=== PATIENT | female | born 1960 | race Two or more races ===

== ENCOUNTER 2024-12-22 14:42 | Inpatient (IN) | payer MEDICARE, BC ==
[~2024-12-22] VITALS: Ht 154.9 cm; Wt 45.9 kg
[2024-12-22 15:26] LABS: Chloride 105 mmol/L (98-107); Potassium 3.8 mmol/L (3.5-5.1); Sodium 143 mmol/L (136-145)
[2024-12-22 15:27] LABS: Anion Gap 10 (5-15); Calcium 9.1 mg/dL (8.7-10.4); Carbon Dioxide 28 mmol/L (20-31)
--- NOTE | 2024-12-22 15:28 | ED.PDOC ---
History of Present Illness HPI Comments 64-year-old female with a history of SLE, hypothyroidism, osteoporosis and scoliosis brought in by private car, referred by urgent care for evaluation of dizziness. Patient states she has been dizzy for about a week intermittently, described as feeling off balance. She denies any headache, vision changes or focal weakness. She states she purchased meclizine [id number], which she has been taking with mild improvement, however she still was having symptoms so decided to go to urgent Care today. EKG performed at urgent care was abnormal as compared to a prior EKG, showing T-wave inversions in the inferior and lateral leads, so patient was referred to the ER for further evaluation. Patient denies any chest pain or shortness a breath. Chief Complaint: Dizziness Time Seen by MD: 14:50 Reviewed Notes: Medications, Allergies Allergies: Coded Allergies: NO KNOWN ALLERGIES (Unverified , 12/22/24) Information Source: Patient Mode of Arrival: Ambulatory Severity: Moderate Timing: Days Duration: Since onset Prehospital treatment: None Past Medical History PAST MEDICAL HISTORY: Thyroid Past Medical History (Other): SLE, osteoporosis, scoliosis Surgical History (Other): Ovarian cystectomy NEWS CONTENT SPECIALIST History: Denies all NEWS CONTENT SPECIALIST Hx Family History Family History: Reviewed,noncontributory to illness Social History Smoker: Non-Smoker Alcohol: Denies ETOH Use Drugs: Denies Drug Use Lives In: Home Constitutional: denies: chills, diaphoresis, fatigue, fever, malaise, sweats, weakness, others EENTM: denies: blurred vision, double vision, ear bleeding, ear discharge, ear drainage, ear pain, ear ringing, eye pain, eye redness, hearing loss, mouth pain, mouth swelling, nasal discharge, nose bleeding, nose congestion, nose pain, photophobia, tearing, throat pain, throat swelling, voice changes, others Respiratory: denies: cough, hemoptysis, orthopnea, SOB at rest, shortness of breath, SOB with excertion, stridor, wheezing, others Cardiovascular: denies: chest pain, dizzy spells, diaphoresis, Dyspnea on exertion, edema, irregular heart beat, left arm pain, lightheadedness, palpitations, PND, syncope, others Gastrointestinal: denies: abdomen distended, abdominal pain, blood streaked bowels, constipated, diarrhea, dysphagia, difficulty swallowing, hematemesis, melena, nausea, poor appetite, poor fluid intake, rectal bleeding, rectal pain, vomiting, others Genitourinary: denies: abnormal vagina bleeding, burning, dyspareunia, dysuria, flank pain, frequency, hematuria, incontinence, pain, , vagina d ischarge, urgency, others Neurological: reports: dizziness; denies: fainting, headache, left sided numbness, left sided weakness, numbness, paresthesia, pre-existing deficit, right sided numbness, right sided weakness, seizure, speech problems, tingling, tremors, weakness, others Musculoskeletal: denies: back pain, gout, joint pain, joint swelling, muscle pain, muscle stiffness, neck pain, others Integumetry: denies: bruises, change in color, change in hair/nails, dryness, laceration, lesions, lumps, rash, wounds, others Allergic/Immunocompromised: denies: Difficulty Healing, Frequent Infections, Hives, Itching, others Hematologic/Lymphatic: denies: anemia, blood clots, easy bleeding, easy bruising, swollen glands, others Endocrine: denies: excessive hunger, excessive sweating, excessive thirst, excessive urination, flushing, intolerance to cold, intolerance to heat, unexplained weight gain, unexplained weight loss, others Psychiatric: denies: anxiety, bipolar disorder, depression, hopeless, panic disorder, schizophrenia, sleepless, suicidal, others Physical Exam General Appearance: No Apparent Distress HEENT: Other (Pupils and face symmetric. Moist mucous membranes.) Neck: Full Range of Motion, Normal Inspection Respiratory: Lungs Clear, No Accessory Muscle Use, No Respiratory Distress, Normal Breath Sounds Cardiovascular: No Edema, No JVD, Regular Rate/Rhythm Breast Exam: Deferred Gastrointestinal: Non Tender, Soft Genitalia: Deferred Pelvic: Deferred Rectal: Deferred Extremities: Normal inspection, Normal range of motion, Non-tender, No pedal edema Neurologic: Alert (Oriented x4), Normal Affect, Normal Mood, Other (Ambulatory. No gross focal deficit.) Cerebellar Function: NOT DONE Reflexes: NOT DONE Skin: Dry, Normal Color, Warm Lymphatic: NOT DONE Was a procedure done? Was a procedure done?: No EKG EKG : Comments Sinus rhythm, rate 67, normal intervals, normal axis, normal QRS, inferior and lateral T-wave inversion Differential Dx Considerations may include: Positional vertigo, CVA, TIA, orthostasis/hypovolemia, electrolyte imbalance, arrhythmia, HI, among others X-Ray, Labs, Meds, VS Vital Signs Date Time Temp Pulse Resp B/P (MAP) Pulse Ox O2 Delivery O2 Flow Rate FiO2 12/22/24 21:00 Room Air* 0 21 12/22/24 21:00 98.3 89 18 134/77 (96) 98 98.3 12/22/24 16:37 70 16 97 Room Air 12/22/24 16:37 97.4 70 16 147/75 (99) 70 97.4 12/22/24 14:55 67 12/22/24 14:45 98.6 69 16 137/69 98 98.6 Lab Test 12/22/24 21:40 12/22/24 16:34 12/22/24 15:45 12/22/24 15:00 Range/Units Troponin I High Sensitivity 207 *H 245 *H 233 *H </=34 ng/L Urine Color Light-yellow Yellow Urine Clarity Clear Clear Urine pH 5.5 5.0-9.0 Urine Specific [place] 1.010 1.001-1.035 Urine Protein Negative Negative Urine Ketones Negative Negative Urine Blood 1+ H Negative /uL Urine Nitrite Negative Negative Urine Bilirubin Negative Negative Urine Urobilinogen Normal Negative mg/dL Urine Leukocyte Esterase Trace Negative /uL Urine RBC 3 0 - 4 /hpf Urine Microscopic WBC 4 0-5 /HPF Urine Squamous Epithelial Cells None seen <5 /hpf Urine Bacteria None seen None Seen /hpf Urine Glucose Normal Normal mg/dL White Blood Count 7.2 4.4-10.8 10^3/uL Red Blood Count 4.77 4.0-5.20 10^6/uL Hemoglobin 15.0 12.2-16.2 g/dL Hematocrit 43.2 36.0-46.0 % Mean Corpuscular Volume 90.6 80.0-100.0 fL Mean Corpuscular Hemoglobin 31.5 28.0-32.0 pg Mean Corpuscular Hemoglobin Concent 34.8 32.0-36.0 g/dL Red Cell Distribution Width 12.9 11.8-14.3 % Platelet Count 236 140-450 10^3/uL Mean Platelet Volume 8.1 6.9-10.8 fL Neutrophils (%) (Auto) 45.1 37.0-80.0 % Lymphocytes (%) (Auto) 47.0 10.0-50.0 % Monocytes (%) (Auto) 5.8 0.0-12.0 % Eosinophils (%) (Auto) 1.6 0.0-7.0 % Basophils (%) (Auto) 0.5 0.0-2.0 % Neutrophils # (Auto) 3.2 1.6-8.6 10 ^3/uL Lymphocytes # (Auto) 3.4 0.4-5.4 10 ^3/uL Monocytes # (Auto) 0.4 0-1.3 10 ^3/uL Eosinophils # (Auto) 0.1 0-0.8 10 ^3/uL Basophils # (Auto) 0 0-0.2 10 ^3/uL Nucleated Red Blood Cells 0.2 % Sodium Level 143 136-145 mmol/L Potassium Level 3.8 3.5-5.1 mmol/L Chloride Level 105 98-107 mmol/L Carbon Dioxide Level 28 20-31 mmol/L Anion Gap 10 5-15 Blood Urea Nitrogen 11 9-23 mg/dL Creatinine 0.59 0.550-1.02 mg/dL Glomerular Filtration Rate Calc 100 >90 mL/min BUN/Creatinine Ratio 18.6 10.0-20.0 Serum Glucose 77 74-106 mg/dL Calcium Level 9.1 8.7-10.4 mg/dL B-Type Natriuretic Peptide 39.25 0-100 pg/mL Current Medications Medications (Trade) Dose Ordered Sig/Sweta Route Start Time Stop Time Status Last Admin Aspirin 325 mg ONCE ONCE PO 12/22/24 20:45 12/22/24 20:51 DC 12/22/24 21:04 PROCEDURE(s): HWOCT - HEAD WITHOUT CONTRAST REASON: dizzy ORDER NUMBER(s): [id number], ACCESSION NUMBER(s): [id number] CLINICAL HISTORY: dizzy TECHNIQUE: Helical scanning was performed of the head from the skull base to the vertex. Multiplanar reconstructions were performed. This exam was performed according to our departmental dose optimization program. Up-to-date CT equipment and radiation dose reduction techniques are utilized as appropriate. CTDI 50.9 DLP 899.2 but they're not COMPARISON: None FINDINGS: There is no evidence for acute intracranial hemorrhage, acute ischemic changes, mass, mass effect, or extra-axial fluid collection. There is no hydrocephalus or midline shift. There is no effacement of the cerebral sulci and basal subarachnoid cisterns. The sherman-white matter differentiation is well maintained. The imaged paranasal sinuses are clear. IMPRESSION: NO ACUTE INTRACRANIAL ABNORMALITY SEEN. X-Ray, Labs, Meds, VS Comment 64-year-old female with a history of SLE, hypothyroidism, osteoporosis and scoliosis brought in by private car, referred by urgent care for evaluation of dizziness and abnormal EKG findings. Initial vitals unremarkable Exam unremarkable Rhythm strip independently interpreted by me: Sinus rhythm, rate 67, no ectopy. CT head unremarkable Chest x-ray result pending CBC normal, basic metabolic panel and BNP normal. Serial troponins 233 and 245 Patient treated with the following in the ED: Aspirin 325 mg p.o. On re-evaluation, exam is unchanged. Vitals were stable. Patient denies chest pain. Plan is to admit the patient for ongoing serial troponins and Cardiology/neurology evaluation Case discussed with JAKE Meeks, who will admit the patient. Time of 1ST Reevaluation: 15:31 Reevaluation 1ST: Unchanged Patient Education/Counseling: Diagnosis, Treatment Family Education/Counseling: No Family Present SEPSIS Sepsis Screen Date sepsis recognized/suspect: Dec 22, 2024 Time Sepsis recognized/suspect: 1445 Recent Procedure: No On Antibiotic Therapy: No Respiratory Rate >20: No Heart Rate >90: No Temp<36 C (96.8 F) or >38.3 C: No SBP <90 or MAP <65 mmHG: No New Acute Mental Status Change: No Is the patient on CPAP, BIPAP,: No Physician Orders Head Without Contrast (12/22/24 15:09) Chest Xray 1 View (12/22/24 20:34) Vital Signs Date Time Temp Pulse Resp B/P (MAP) Pulse Ox O2 Delivery O2 Flow Rate FiO2 12/22/24 21:00 Room Air* 0 21 12/22/24 21:00 98.3 89 18 134/77 (96) 98 98.3 12/22/24 16:37 70 16 97 Room Air 12/22/24 16:37 97.4 70 16 147/75 (99) 70 97.4 12/22/24 14:55 67 12/22/24 14:45 98.6 69 16 137/69 98 98.6 Laboratory Tests Test 12/22/24 15:00 White Blood Count 7.2 10^3/uL (4.4-10.8) Medications Medications Dose Ordered Sig/Sweta Route Start Time Stop Time Status Last Admin Dose Admin Aspirin 325 mg ONCE ONCE PO 12/22/24 20:45 12/22/24 20:51 DC 12/22/24 21:04 Departure 1 Departure Time of Disposition: 18:00 Impression: Primary Impression: Dizziness Additional Impression: Elevated troponin Disposition: ADMITTED INPATIENT Admit to: Tele Condition: Guarded Critical Care Note Critical Care Time?: No Stability Stability form required: No Heart Score Heart Score: Heart Score Response (Comments) Value History N/A 0 EKG N/A 0 Age N/A 0 Risk Factors N/A 0 Troponin N/A 0 Total 0 I personally scribed for TORI COSBY MD ([email or web address]) on 12/22/24 at 15:33. Electronically submitted by Rayray Vuong ([email or web address]). TORI COSBY MD Dec 22, 2024 15:28
[2024-12-22 15:32] LABS: BUN/Creatinine Ratio 18.6 (10.0-20.0); Blood Urea Nitrogen 11 mg/dL (9-23); Glucose 77 mg/dL (74-106)
[2024-12-22 15:54] LABS: Hematocrit 43.2 % (36.0-46.0); Hemoglobin 15.0 g/dL (12.2-16.2); Mean Corpuscular Hemoglobin 31.5 pg (28.0-32.0); Mean Corpuscular Volume 90.6 fL (80.0-100.0); Nucleated Red Blood Cells % 0.2 %
--- NOTE | 2024-12-22 16:08 | DVH ---
CLINICAL HISTORY: dizzy TECHNIQUE: Helical scanning was performed of the head from the skull base to the vertex. Multiplanar reconstructions were performed. This exam was performed according to our departmental dose optimizat ion program. Up-to-date CT equipment and radiation dose reduction techniques are utilized as appropri ate. CTDI 50.9 DLP 899.2 but they're not COMPARISON: None FINDINGS: There is no evidence for acute intracranial hemorrhage, acute ischemic changes, mass, mass effect, or extra-axial fluid collection. There is no hydrocephalus or midline shift. There is no effacement of the cerebral sulci and basal subarachnoid cisterns. The sherman-white matter differentiation is well carleen ntained. The imaged paranasal sinuses are clear. IMPRESSION: NO ACUTE INTRACRANIAL ABNORMALITY SEEN.
[2024-12-22 16:32] LABS: Urine Protein, UAD Negative (Negative)
--- NOTE | 2024-12-22 18:46 | ECG ---
[facility] Test Date: 2024-12-22 Test Time: 14:52:02 Pat Name: CARLOS GOMEZ Department: ED Room: Gender: F Cigar Head Pegger: RAE : 1960 Requested By: TORI RAY Order Number: [id number] Reading MD: Measurements Intervals [place] Rate: 67 P: 36 VT: 140 QRS: 70 QRSD: 80 T: -53 QT: 443 QTc: 468 Interpretive Statements Sinus rhythm Consider left ventricular hypertrophy Nonspecific T abnormalities, diffuse leads Please click the below link to view image of tracing.
--- NOTE | 2024-12-22 21:08 | DVH ---
CHEST RADIOGRAPH Indication: Dizziness, abnormal EKG, elevated troponin Technique: Single frontal view of the chest was obtained Comparison: None FINDINGS: Lines and Tubes: None Lungs: No focal consolidation. Pleura: No effusion. No pneumothorax. Cardiomediastinal contours: Unremarkable Bones: No acute osseous abnormality. IMPRESSION: 1. No acute cardiopulmonary disease.
[2024-12-22] MEDS ORDERED: ACETAMINOPHEN 325 MG TAB PO PRN (22:45)
[2024-12-22] MEDS ORDERED: ONDANSETRON HCL 4 MG/2 ML VIAL IV PRN (22:45)
[2024-12-22] MEDS ORDERED: MORPHINE SULFATE INJ 2 MG/ml SYRG IV PRN ×2 (22:45)
[2024-12-22] MEDS ORDERED: MECLIZINE HCL 25 MG TAB PO PRN (22:45)
[2024-12-22] MEDS ORDERED: NITROGLYCERIN 0.4 MG SL TAB SL PRN (22:45)
[2024-12-22] MEDS ORDERED: DOCUSATE SOD 100 MG CAP PO PRN (22:45)
[2024-12-22] MEDS ORDERED: HYDROcodone-ACET 5/325MG TAB PO PRN (22:45)
[2024-12-23] VITALS (13 sets, daily range): BP systolic 109–140; BP diastolic 54–75; PULSE 60–73; RESP 12–20; TEMP 97.5–98.6; O2SAT 96–100
--- NOTE | 2024-12-23 01:55 | DVHHP2 ---
BABATUNDE VALENTIN DIRECTOR OF NATIONAL SALES 12/23/24 0155: History of Present Illness Reason for Visit: Dizziness History of Present Illness 64-year-old female with past medical history of hypothyroidism, SLE presents with complaints of dizziness x1 week. Patient states she went to urgent care and was sent to the emergency department for an abnormal EKG. EKG completed at urgent Care had abnormal T-wave compared to the previous EKG. Patient endorses she has had intermittent chest tightness throughout the previous week. During the emergency department evaluation CBC is unremarkable. BMP unremarkable. Troponin levels elevated to 233/245/207. At this time patient states dizziness has improved mildly. Denies fevers, chills, shortness of breath, palpitations, nausea, vomiting, leg swelling. Rheumatologic: Other (SLE) Endocrine: Hypothyroidism Smoke: No ALCOHOL: none Drugs: None Lives: with Family Review of Systems Constitutional: No: Fever, Chills, Sweats, Weakness, Malaise, Other Eyes: No: Pain, Vision change, Conjunctivae inflammation, Eyelid inflammation, Other, Redness ENT: No: Ear pain, Ear discharge, Nose pain, Nose discharge, Nose congestion, Mouth pain, Mouth swelling, Throat pain, Throat swelling, Other Respiratory: No: Cough, Dry, Shortness of breath, SOB with excertion, Wheezing, Hemoptysis, Pleuritic Pain, Sputum, Wheezing, Other Cardiovascular: Chest Pain, Lt Headedness; No: Palpitations, Orthopnea, Paroxysmal Noc. Dyspnea, Edema, Other Gastrointestinal: No: Nausea, Vomiting, Abdominal Pain, Diarrhea, Constipation, Melena, Hematochezia, Other Genitourinary: No Dysuria, No Frequency, No Incontinence, No Hematuria, No Retention, No Other Musculoskeletal: No: other, neck pain, shoulder pain, arm pain, back pain, hand pain, leg pain, foot pain Skin: No: Rash, Lesions, Jaundice, Bruising, Other Neurological: No: Weakness, Numbness, Incoordination, Change in speech, Confusion, Seizures, Other Allergies: Coded Allergies: NO KNOWN ALLERGIES (Unverified , 12/22/24) Medications Current Medications Medications Dose Ordered Sig/Sweta Route Start Time Stop Time Status Last Admin Dose Admin Docusate Sodium 100 mg BIDPRN PRN PO 12/22/24 22:45 Acetaminophen 650 mg Q6HP PRN PO 12/22/24 22:45 Acetaminophen/ Hydrocodone Bitart 1 tab Q4HP PRN PO 12/22/24 22:45 Ondansetron HCl 4 mg Q4HP PRN IV 12/22/24 22:45 Morphine Sulfate 2 mg Q4HPRN PRN IV 12/22/24 22:45 Enoxaparin Sodium 40 mg DAILY SC 12/23/24 10:00 Nitroglycerin 0.4 mg Q5MINP PRN SL 12/22/24 22:45 Morphine Sulfate 2 mg Q30M PRN IV 12/22/24 22:45 Aspirin 81 mg DAILY PO 12/23/24 10:00 Levothyroxine Sodium 75 mcg DAILY PO 12/23/24 10:00 Meclizine HCl 25 mg Q8HPRN PRN PO 12/22/24 22:45 Exam Vital Signs Vital Signs Date Time Temp Pulse Resp B/P (MAP) Pulse Ox O2 Delivery O2 Flow Rate FiO2 12/22/24 23:40 60 16 163/62 (95) 99 12/22/24 21:00 Room Air* 0 21 12/22/24 21:00 98.3 98.3 General Appearance: Alert, Oriented X3, Cooperative, No acute distress HEENT: Atraumatic, PERRLA, EOMI Respiratory: Clear to auscultation, Normal air movement Cardiovascular: Regular rate, Normal S1, Normal S2 Abdominal: Normal bowel sounds, Soft, No tenderness Extremities: No clubbing, No cyanosis, No edema Skin: No rashes, No breakdown Neuro: Normal gait, Normal speech, Strength at 5/5 X4 ext Psych/Mental Status: Mental status NL, Mood NL Labs/Xrays Labs Test 12/22/24 21:40 12/22/24 15:45 12/22/24 15:00 Range/Units Troponin I High Sensitivity 207 *H </=34 ng/L Urine Color Light-yellow Yellow Urine Clarity Clear Clear Urine pH 5.5 5.0-9.0 Urine Specific [place] 1.010 1.001-1.035 Urine Protein Negative Negative Urine Ketones Negative Negative Urine Blood 1+ H Negative /uL Urine Nitrite Negative Negative Urine Bilirubin Negative Negative Urine Urobilinogen Normal Negative mg/dL Urine Leukocyte Esterase Trace Negative /uL Urine RBC 3 0 - 4 /hpf Urine Microscopic WBC 4 0-5 /HPF Urine Squamous Epithelial Cells None seen <5 /hpf Urine Bacteria None seen None Seen /hpf Urine Glucose Normal Normal mg/dL White Blood Count 7.2 4.4-10.8 10^3/uL Red Blood Count 4.77 4.0-5.20 10^6/uL Hemoglobin 15.0 12.2-16.2 g/dL Hematocrit 43.2 36.0-46.0 % Mean Corpuscular Volume 90.6 80.0-100.0 fL Mean Corpuscular Hemoglobin 31.5 28.0-32.0 pg Mean Corpuscular Hemoglobin Concent 34.8 32.0-36.0 g/dL Red Cell Distribution Width 12.9 11.8-14.3 % Platelet Count 236 140-450 10^3/uL Mean Platelet Volume 8.1 6.9-10.8 fL Neutrophils (%) (Auto) 45.1 37.0-80.0 % Lymphocytes (%) (Auto) 47.0 10.0-50.0 % Monocytes (%) (Auto) 5.8 0.0-12.0 % Eosinophils (%) (Auto) 1.6 0.0-7.0 % Basophils (%) (Auto) 0.5 0.0-2.0 % Neutrophils # (Auto) 3.2 1.6-8.6 10 ^3/uL Lymphocytes # (Auto) 3.4 0.4-5.4 10 ^3/uL Monocytes # (Auto) 0.4 0-1.3 10 ^3/uL Eosinophils # (Auto) 0.1 0-0.8 10 ^3/uL Basophils # (Auto) 0 0-0.2 10 ^3/uL Nucleated Red Blood Cells 0.2 % Sodium Level 143 136-145 mmol/L Potassium Level 3.8 3.5-5.1 mmol/L Chloride Level 105 98-107 mmol/L Carbon Dioxide Level 28 20-31 mmol/L Anion Gap 10 5-15 Blood Urea Nitrogen 11 9-23 mg/dL Creatinine 0.59 0.550-1.02 mg/dL Glomerular Filtration Rate Calc 100 >90 mL/min BUN/Creatinine Ratio 18.6 10.0-20.0 Serum Glucose 77 74-106 mg/dL Calcium Level 9.1 8.7-10.4 mg/dL B-Type Natriuretic Peptide 39.25 0-100 pg/mL SEPSIS Sepsis Screen Date sepsis recognized/suspect: Dec 22, 2024 Time Sepsis recognized/suspect: 1445 Recent Procedure: No On Antibiotic Therapy: No Respiratory Rate >20: No Heart Rate >90: No Temp<36 C (96.8 F) or >38.3 C: No SBP <90 or MAP <65 mmHG: No New Acute Mental Status Change: No Is the patient on CPAP, BIPAP,: No Physician Orders Chest Xray 1 View (12/22/24 20:34) Admit (12/22/24 22:40) Code Status (12/22/24:40) Vital Signs .PER UNIT PROTOCOL (12/22/24 22:40) Review Orders With Adm.Md (12/22/24:40) Encourage Activity As Tolerate (12/22/24:40) Up Ad Kori (12/22/24:40) Consistent Carb(Ccho)Diabetes (12/23/24 Breakfast) Oxygen By Face Mask (12/22/24:40) Docusate Sodium Capsule (Colace Capsule) (12/22/24 22:45) Acetaminophen Tablet (Tylenol Tablet) (12/22/24 22:45) Notify Md Of Changes From Base (12/22/24 22:40) Advance Directive (12/22/24:40) Echo 2d Mode Cardiac Dop (12/22/24 22:40) Basic Metabolic Panel (12/23/24 05:00) Basic Metabolic Panel (12/24/24 05:00) Basic Metabolic Panel (12/25/24 05:00) Complete Blood Count (12/23/24 05:00) Complete Blood Count (12/24/24 05:00) Complete Blood Count (12/25/24 05:00) Patient Condition (12/22/24 22:40) Allergies (12/22/24 22:40) Hydrocodone-Acet 5/325mg Tab ([place] 5/32 (12/22/24 22:45) Ondansetron Hcl (Zofran) (12/22/24 22:45) Morphine Sulfate Injection (12/22/24 22:45) Enoxaparin Sodium (Lovenox) (12/23/24 10:00) Sequential Compression Device (12/22/24 ) Nitroglycerin Sublingual (Ntrostat Subli (12/22/24 22:45) Morphine Sulfate Injection (12/22/24 22:45) Stat Ekg For Chest Pain (12/22/24 22:40) Notify Md Of Changes From Base (12/22/24 22:40) Program Strategist For 24 Hours (12/22/24 22:40) Emergency Dysrhythmia Protocol (12/22/24 22:40) Rhythm Strips Once Every Shift (12/22/24 22:40) Oxygen By Nasal Cannula (12/22/24 22:40) Troponin-I Hs (12/23/24 04:00) Troponin-I Hs (12/23/24 12:00) * Cardiology Consult (12/22/24 22:40) Orthostatic Vital Signs (12/22/24 22:40) Orthostatic Vital Signs (12/23/24 22:40) Orthostatic Vital Signs (12/24/24 22:40) Orthostatic Vital Signs (12/25/24 22:40) Aspirin Tablet (12/23/24 10:00) Levothyroxine Tablet (Synthroid Tablet) (12/23/24 10:00) Sodium Chloride 0.9% (12/22/24 22:45) Meclizine Tablet (Antivert Tablet) (12/22/24 22:45) Communication Order (12/22/24 22:54) Vital Signs Date Time Temp Pulse Resp B/P (MAP) Pulse Ox O2 Delivery O2 Flow Rate FiO2 12/22/24 23:40 60 16 163/62 (95) 99 12/22/24 21:00 Room Air* 0 21 12/22/24 21:00 98.3 89 18 134/77 (96) 98 98.3 Laboratory Tests Test 12/22/24 15:00 White Blood Count 7.2 10^3/uL (4.4-10.8) Medications Medications Dose Ordered Sig/Sweta Route Start Time Stop Time Status Last Admin Dose Admin Aspirin 325 mg ONCE ONCE PO 12/22/24 20:45 12/22/24 20:51 DC 12/22/24 21:04 325 MG Assessment/Plan Assessment/Plan Dizziness Elevated troponin Plan Admit telemetry MRI brain. Cardiology consult. Echocardiogram. ASA. Orthostatic vital signs. IVF. As needed meclizine Physical therapy evaluation GI ppx Pepcid / DVT ppx lovenox Plan discussed with: Patient My Orders Orders - BABATUNDE VALENTIN NP Procedure Category Date Status Time Admit ADMIT 12/22/24 Transmitted 22:40 Code Status CODE 12/22/24 Transmitted 22:40 Vital Signs JENAE 12/22/24 In Process 22:40 Review Orders With JENAE 12/22/24 In Process Adm. 22:40 Encourage Activity As JENAE 12/22/24 In Process Tolerate 22:40 Up Ad Kori JENAE 12/22/24 In Process 22:40 Consistent DIET 12/23/24 Transmitted Carb(Ccho)Diabetes Breakfast Oxygen By Face Mask RT 12/22/24 Transmitted 22:40 Docusate Sodium PHA 12/22/24 In Process Capsule (Colace 22:45 Acetaminophen Tablet PHA 12/22/24 In Process (Tylenol Tablet) 22:45 Notify Of Changes JENAE 12/22/24 In Process From Base 22:40 Advance Directive JENAE 12/22/24 In Process 22:40 Echo 2d Mode Cardiac US 12/22/24 Logged DOP 22:40 Basic Metabolic Panel LAB 12/23/24 Logged 05:00 Basic Metabolic Panel LAB 12/24/24 Verified 05:00 Basic Metabolic Panel LAB 12/25/24 Verified 05:00 Complete Blood Count LAB 12/23/24 Logged 05:00 Complete Blood Count LAB 12/24/24 Verified 05:00 Complete Blood Count LAB 12/25/24 Verified 05:00 Patient Condition ORDERS 12/22/24 Transmitted 22:40 Allergies JENAE 12/22/24 In Process 22:40 Hydrocodone-Acet PHA 12/22/24 In Process 5/325mg Tab ([place] 22:45 Ondansetron Hcl PHA 12/22/24 In Process (Zofran) 22:45 Morphine Sulfate PHA 12/22/24 In Process Injection 22:45 Enoxaparin Sodium PHA 12/23/24 In Process (Lovenox) 10:00 Sequential JENAE 12/22/24 In Process Compression Device Nitroglycerin PHA 12/22/24 In Process Sublingual (Ntrostat 22:45 Morphine Sulfate PHA 12/22/24 In Process Injection 22:45 Stat Ekg For Chest JENAE 12/22/24 In Process Pain 22:40 Notify Of Changes JENAE 12/22/24 In Process From Base 22:40 Program Strategist For JENAE 12/22/24 In Process 24 Hours 22:40 Emergency Dysrhythmia JENAE 12/22/24 In Process Protocol 22:40 Rhythm Strips Once JENAE 12/22/24 In Process Every Shift 22:40 Oxygen By Nasal RT 12/22/24 Transmitted Cannula 22:40 Troponin-I Hs LAB 12/23/24 Logged 04:00 Troponin-I Hs LAB 12/23/24 Logged 12:00 * Cardiology Consult CONS 12/22/24 Transmitted 22:40 Orthostatic Vital ORDERS 12/22/24 Transmitted Signs 22:40 Orthostatic Vital ORDERS 12/23/24 Transmitted Signs 22:40 Orthostatic Vital ORDERS 12/24/24 Transmitted Signs 22:40 Orthostatic Vital ORDERS 12/25/24 Transmitted Signs 22:40 Aspirin Tablet PHA 12/23/24 In Process 10:00 Levothyroxine Tablet PHA 12/23/24 In Process (Synthroid Tablet) 10:00 Sodium Chloride 0.9% PHA 12/22/24 In Process 22:45 Meclizine Tablet PHA 12/22/24 In Process (Antivert Tablet) 22:45 Communication Order ORDERS 12/22/24 Transmitted 22:54 Date of Service: Dec 23, 2024 Billing Provider: DAKOTA TELLO MD Common Visit Codes: NOT BILLABLE DAKOTA TELLO MD 12/23/24 1548: Review of Systems Allergies: Coded Allergies: NO KNOWN ALLERGIES (Unverified , 12/22/24) Additional Comments Additional Comments Additional Comments Patient's chart is reviewed and discussed with the nurse practitioner. Patient is seen and evaluated and admitted by nurse practitioner earlier today. I agree with his evaluation, documentation, assessment and care plan as outlined. BABATUNDE VALENTIN NP Dec 23, 2024 01:55 DAKOTA TELLO MD Dec 23, 2024 15:48
[2024-12-23 04:58] LABS: Hematocrit 42.7 % (36.0-46.0); Hemoglobin 15.2 g/dL (12.2-16.2); Mean Corpuscular Hemoglobin 31.9 pg (28.0-32.0); Mean Corpuscular Volume 89.9 fL (80.0-100.0); Nucleated Red Blood Cells % 0.0 %
[2024-12-23] MEDS: SODIUM CHLORIDE 0.9% 500 ML IV ONE (05:01)
[2024-12-23 05:05] LABS: Chloride 107 mmol/L (98-107); Potassium 3.9 mmol/L (3.5-5.1); Sodium 142 mmol/L (136-145)
[2024-12-23 05:06] LABS: Anion Gap 7 (5-15); Calcium 8.8 mg/dL (8.7-10.4); Carbon Dioxide 28 mmol/L (20-31)
[2024-12-23 05:11] LABS: BUN/Creatinine Ratio 16.1 (10.0-20.0); Blood Urea Nitrogen 9 mg/dL (9-23); Glucose 79 mg/dL (74-106)
[2024-12-23] MEDS ORDERED: LEVO75TA6 PO (06:20)
[2024-12-23] MEDS ORDERED: INDO50CA82 PO (06:20)
[2024-12-23] MEDS ORDERED: HYDR200T36 PO (06:20)
[2024-12-23] MEDS ORDERED: ALEN70TA74 PO (06:20)
--- NOTE | 2024-12-23 08:57 | DVH ---
CLINICAL HISTORY: dizziness TECHNIQUE: Routine multiplanar imaging of the brain was performed without gadolinium contrast. COMPARISON: CT HEAD WITHOUT CONTRAST on DOS: 12/22/24 FINDINGS: There is no abnormal restricted diffusion to suggest acute infarction. There are no significant chronic small vessel ischemic foci. There is no evidence for acute ischemic changes, mass, mass effect, or extra-axial fluid collection. There is no hydrocephalus or midline shift. The cerebral sulci and subarachnoid cisterns are not effa collin. The imaged paranasal sinuses are clear. The globes are intact. The midline structures, including the corpus callosum, are unremarkable. The intracranial flow voids are maintained. IMPRESSION: No acute intracranial abnormality seen. No evidence for acute infarct. No significant white matter di sease.
[2024-12-23 09:38] LABS: Magnesium 2.4 mg/dL (1.6-2.6); Triglycerides 131.0 mg/dL (< 150)
[2024-12-23 09:40] LABS: Cholesterol 179.0 mg/dL (< 200)
[2024-12-23 09:47] LABS: HDL Cholesterol 61.0 mg/dL (40-59)
[2024-12-23] MEDS: ENOXAPARIN SOD 40 MG/0.4 ML SYRINGE SC SCH (09:57)
[2024-12-23] MEDS: LEVOTHYROXINE SODIUM 25 MCG TAB PO SCH (10:04)
--- NOTE | 2024-12-23 10:05 | DVHINCON2 ---
Date Seen: Dec 23, 2024 Referring Physician JAKE Meeks Reason for Consultation Elevated troponin History of Present Illness This is a 64-year-old female patient who presents to the emergency room with chief complaint of dizziness. The patient reports that she has been experiencing dizziness for approximately one week. She also mentions two episodes of chest pain. She describes the chest pain as unprovoked, inter mittent, tight in nature, substernal and nonradiating. She denied any alleviating or aggravating factors stating that these episodes were very brief. Initial twelve lead electrocardiogram reveals normal sinus rhythm with nonspecific T-wave inversion in diffuse leads. Initial troponin level of 233ng/L with flat trend thereafter. Significant past medical history includes thyroid disease, systemic lupus erythematosus (SLE), osteoarthritis, osteoporosis, scoliosis, and previous tobacco use. The patient reports a stress test approximately two years ago with negative results. She has not followed up with a rivet machine operator in the outpatient setting since that time. She does report pertinent family history of her father and brother having myocardial infarctions and both requiring stent placement. Past Medical History Past medical history reviewed. No other significant than mentioned above. Past Surgical History Ovarian cyst removal Family History: Patient reports no known family medical history. Family History Family history reviewed. Social History Patient has a 17 pack-year history, quit smoking approximately 30 years ago Patient admits to drinking four alcoholic drinks per week Denies any illicit drug use Allergies: Coded Allergies: NO KNOWN ALLERGIES (Unverified , 12/22/24) Home Meds Reported Medications Indomethacin (Indomethacin) 50 Mg Cap, 1 CAP PO TID 12/23/24 Levothyroxine Sodium (Levothyroxine Sodium) 75 Mcg Tab, 1 TAB PO DAILY 12/23/24 Hydroxychloroquine Sulfate (Hydroxychloroquine Sulfat) 200 Mg Tab, 1 TAB PO DAILY 12/23/24 Alendronate Sodium (Alendronate Sodium) 70 Mg Tab, 1 TAB PO QWEEKLY 12/23/24 Home Meds Home medications reviewed. Current Medications Current Medications Medications (Trade) Dose Ordered Sig/Sweta Route PRN Reason Start Time Stop Time Status Last Admin Docusate Sodium (Colace Capsule) 100 mg BIDPRN PRN PO FOR CONSTIPATION 12/22/24 22:45 Acetaminophen (Tylenol Tablet) 650 mg Q6HP PRN PO PAIN SCALE 1-3 OR TEMP>100.4 12/22/24 22:45 Acetaminophen/ Hydrocodone Bitart ([place] 5/325MG Tab) 1 tab Q4HP PRN PO MODERATE PAIN (4-6 PAIN SCALE) 12/22/24 22:45 Ondansetron HCl (Zofran) 4 mg Q4HP PRN IV NAUSEA / VOMITING 12/22/24 22:45 Morphine Sulfate 2 mg Q4HPRN PRN IV SEVERE PAIN (7-10 PAIN SCALE) 12/22/24 22:45 Enoxaparin Sodium (Lovenox) 40 mg DAILY SC 12/23/24 10:00 Nitroglycerin (Ntrostat Sublingual) 0.4 mg Q5MINP PRN SL FOR CHEST PAIN 12/22/24 22:45 Morphine Sulfate 2 mg Q30M PRN IV FOR CHEST PAIN 12/22/24 22:45 Aspirin 81 mg DAILY PO 12/23/24 10:00 Levothyroxine Sodium (Synthroid Tablet) 75 mcg DAILY PO 12/23/24 10:00 Meclizine HCl (Antivert Tablet) 25 mg Q8HPRN PRN PO dizziness 12/22/24 22:45 Review of Systems Constitutional: No symptom reported Ears, Nose, & Throat: No symptom reported Eyes: No symptom reported Neurological: Dizziness Pulmonary/Respiratory: No symptoms reported Cardiovascular: Chest pain Gastrointestinal: No symptom reported Genitourinary: No symptom reported Musculoskeletal: No symptom reported Skin: No symptom reported Psychiatric: No symptom reported Endocrine: No symptom reported Hematologic/Lymphatic: No symptom reported Vital Signs Vital Signs Date Time Temp Pulse Resp B/P (MAP) Pulse Ox O2 Delivery O2 Flow Rate FiO2 12/23/24 09:00 98.5 61 18 137/54 (81) 100 98.5 12/23/24 05:06 Room Air* 0 21 Physical Exam General Appearance: Cooperative. Well-developed. Well-nourished. No acute distress. Pulmonary/Respiratory: Clear, bilateral breaths sounds. Cardiovascular/Chest: Regular rate and rhythm. Peripheral Pulses: 2+ Radial (R). 2+ Radial (L). 2+ Pedal (R). 2+ Pedal (L) Abdominal Exam: Normal bowel sounds. Ankle Exam: Negative ankle edema Lower extremities: Negative lower extremity edema Neuro/Mental Status: A/OX4, coherent. Thoughts/Psych: Normal thought pattern. Appropriate mood and affect. Good judgment and insight. Appearance: No acute distress. Skin Exam: Normal inspection. Normal color. Warm and dry. Labs/Diagnostic Data Labs Test 12/23/24 04:14 12/22/24 15:45 12/22/24 15:00 Range/Units White Blood Count 7.3 4.4-10.8 10^3/uL Red Blood Count 4.75 4.0-5.20 10^6/uL Hemoglobin 15.2 12.2-16.2 g/dL Hematocrit 42.7 36.0-46.0 % Mean Corpuscular Volume 89.9 80.0-100.0 fL Mean Corpuscular Hemoglobin 31.9 28.0-32.0 pg Mean Corpuscular Hemoglobin Concent 35.5 32.0-36.0 g/dL Red Cell Distribution Width 12.8 11.8-14.3 % Platelet Count 251 140-450 10^3/uL Mean Platelet Volume 7.8 6.9-10.8 fL Neutrophils (%) (Auto) 47.6 37.0-80.0 % Lymphocytes (%) (Auto) 42.2 10.0-50.0 % Monocytes (%) (Auto) 7.3 0.0-12.0 % Eosinophils (%) (Auto) 1.9 0.0-7.0 % Basophils (%) (Auto) 1.0 0.0-2.0 % Neutrophils # (Auto) 3.5 1.6-8.6 10 ^3/uL Lymphocytes # (Auto) 3.1 0.4-5.4 10 ^3/uL Monocytes # (Auto) 0.5 0-1.3 10 ^3/uL Eosinophils # (Auto) 0.1 0-0.8 10 ^3/uL Basophils # (Auto) 0.1 0-0.2 10 ^3/uL Nucleated Red Blood Cells 0.0 % Sodium Level 142 136-145 mmol/L Potassium Level 3.9 3.5-5.1 mmol/L Chloride Level 107 98-107 mmol/L Carbon Dioxide Level 28 20-31 mmol/L Anion Gap 7 5-15 Blood Urea Nitrogen 9 9-23 mg/dL Creatinine 0.56 0.550-1.02 mg/dL Glomerular Filtration Rate Calc 101 >90 mL/min BUN/Creatinine Ratio 16.1 10.0-20.0 Serum Glucose 79 74-106 mg/dL Calcium Level 8.8 8.7-10.4 mg/dL Magnesium Level 2.4 1.6-2.6 mg/dL Troponin I High Sensitivity 245 *H </=34 ng/L Triglycerides Level 131 < 150 mg/dL Cholesterol Level 179 < 200 mg/dL LDL Cholesterol 103 H < 100 mg/dL HDL Cholesterol 61 H 40-59 mg/dL Urine Color Light-yellow Yellow Urine Clarity Clear Clear Urine pH 5.5 5.0-9.0 Urine Specific [place] 1.010 1.001-1.035 Urine Protein Negative Negative Urine Ketones Negative Negative Urine Blood 1+ H Negative /uL Urine Nitrite Negative Negative Urine Bilirubin Negative Negative Urine Urobilinogen Normal Negative mg/dL Urine Leukocyte Esterase Trace Negative /uL Urine RBC 3 0 - 4 /hpf Urine Microscopic WBC 4 0-5 /HPF Urine Squamous Epithelial Cells None seen <5 /hpf Urine Bacteria None seen None Seen /hpf Urine Glucose Normal Normal mg/dL B-Type Natriuretic Peptide 39.25 0-100 pg/mL Assessment NSTEMI, rule out coronary artery disease Rule out structural heart disease Hyperlipidemia, newly diagnosed Thyroid disease Systemic lupus erythematosus (SLE) Osteoarthritis Osteoporosis Scoliosis History of tobacco use Plan/Recommendation We will continue with the following plan/recommendations (Dr. Plaza): * Transthoracic echocardiogram to evaluate cardiac function * Chest pain protocol * HEART score: 6 points * BLUE score: 2 points * Lipid-lowering agent * Close Cardiac surveillance * Coronary angiogram Case discussed with . Given the patient's clinical presentation, elevated troponin level, and twelve lead electrocardiogram changes, we will recommend for the patient to undergo a coronary angiogram with left heart catheterization. The procedure was discussed with the patient in full detail including risks and benefits. Risks include but are not limited to bleeding, contrast-induced nephropathy, coronary dissection, stroke, and even . The patient understands and is agreeable to undergo the procedure. We will schedule the patient at soonest availability on 12/23/2024. Thank you for allowing us to care for this patient. Please call with any questions or concerns. Critical care time spent: 44 minutes This medical document was created using an electronic medical record system with voice recognition software and computerized dictation system. Although this document has been carefully reviewed, there might still be some phonetic and typographical errors. Occasional wrong-word or ``sound-alike substitutions may have occurred due to the inherent limitations of voice recognition software. These areas are purely typographical due to imperfections of the software programs and do not reflect any compromise in the patient's medical care. Please read the chart carefully and recognize, using context, where these substitutions have occurred. Plan discussed with: Patient NYHA Physical activity limitations: NA Date of Service: Dec 23, 2024 Billing Provider: TOMY JOHNSON Cardiology Common Codes: [id number] INP/OBS CARE (High) Cardiology Consultation Codes: [id number] CONSULT <45MIN TOMY JOHNSON Dec 23, 2024 10:05
--- NOTE | 2024-12-23 12:18 | DVHPN2 ---
Subjective The patient is seen and examined at bedside. No complaint today. Reviewed: Care Plan, H&P, Labs, Medications, Previous Orders, Radiology Changes from previous H/P or p: No Changes Eyes: No Pain, No Vision change, No Conjunctivae inflammation, No Eyelid inflammation, No Other, No Redness ENT: No Ear pain, No Ear discharge, No Nose pain, No Nose discharge, No Nose congestion, No Mouth pain, No Mouth swelling, No Throat pain, No Throat swelling, No Other Cardiovascular: Chest Pain, Lt Headedness Respiratory: No Cough, No Dry, No Shortness of breath, No SOB with excertion, No Wheezing, No Hemoptysis, No Pleuritic Pain, No Sputum, No Other Gastrointestinal: No Nausea, No Vomiting, No Abdominal Pain, No Diarrhea, No Constipation, No Melena, No Hematochezia, No Other Genitourinary: No Dysuria, No Frequency, No Incontinence, No Hematuria, No Retention, No Other Musculoskeletal: No other, No neck pain, No shoulder pain, No arm pain, No back pain, No hand pain, No leg pain, No foot pain Skin: No Rash, No Lesions, No Jaundice, No Bruising, No Other Objective Vitals Vital Signs Date Time Temp Pulse Resp B/P (MAP) Pulse Ox O2 Delivery O2 Flow Rate FiO2 12/23/24 09:00 98.5 61 18 137/54 (81) 100 98.5 12/23/24 08:00 Room Air* 0 21 Intake/Output Intake and Output 12/23/24 07:00 Intake Total 100 ml Balance 100 ml Intake IV Total 100 ml General Appearance: Alert, Oriented X3, Cooperative, No acute distress HEENT: Atraumatic, PERRLA, EOMI, Mucous membr. moist/pink Neck: Supple Lungs: Clear to auscultation, Normal air movement Cardiovascular: Regular rate, Normal S1, Normal S2, No murmurs, Gallops, Rubs Abdomen: Normal bowel sounds, Soft, No tenderness Neuro: Cranial nerves 3-12 NL Psych/Mental Status: Mental status NL Medications Current Medications Medications Dose Ordered Sig/Sweta Route Start Time Stop Time Status Last Admin Dose Admin Docusate Sodium 100 mg BIDPRN PRN PO 12/22/24 22:45 Acetaminophen 650 mg Q6HP PRN PO 12/22/24 22:45 Acetaminophen/ Hydrocodone Bitart 1 tab Q4HP PRN PO 12/22/24 22:45 Ondansetron HCl 4 mg Q4HP PRN IV 12/22/24 22:45 Morphine Sulfate 2 mg Q4HPRN PRN IV 12/22/24 22:45 Enoxaparin Sodium 40 mg DAILY SC 12/23/24 10:00 Nitroglycerin 0.4 mg Q5MINP PRN SL 12/22/24 22:45 Morphine Sulfate 2 mg Q30M PRN IV 12/22/24 22:45 Aspirin 81 mg DAILY PO 12/23/24 10:00 Levothyroxine Sodium 75 mcg DAILY PO 12/23/24 10:00 12/23/24 10:04 75 MCG Meclizine HCl 25 mg Q8HPRN PRN PO 12/22/24 22:45 Laboratory Results Laboratory Tests 12/23/24 04:14 Chemistry Test 12/22/24 15:00 12/23/24 04:14 Calcium Level 9.1 mg/dL (8.7-10.4) 8.8 mg/dL (8.7-10.4) Magnesium Level 2.4 mg/dL (1.6-2.6) Lipid panel Test 12/23/24 04:14 Cholesterol Level 179 mg/dL (< 200) HDL Cholesterol 61 mg/dL (40-59) H Triglycerides Level 131 mg/dL (< 150) Cardiac Markers Test 12/22/24 15:00 B-Type Natriuretic Peptide 39.25 pg/mL (0-100) HgA1c, TSH Test 12/23/24 04:14 Hemoglobin A1c 4.6 % A1C (<5.7) Thyroid Stimulating Hormone (TSH) 0.71 uIU/mL (0.55-4.78) Urinalysis Test 12/22/24 15:45 Urine Color Light-yellow (Yellow) Urine Clarity Clear (Clear) Urine pH 5.5 (5.0-9.0) Urine Specific [place] 1.010 (1.001-1.035) Urine Protein Negative (Negative) Urine Ketones Negative (Negative) Urine Blood 1+ /uL (Negative) H Urine Nitrite Negative (Negative) Urine Bilirubin Negative (Negative) Urine Urobilinogen Normal mg/dL (Negative) Urine Leukocyte Esterase Trace /uL (Negative) Urine RBC 3 /hpf (0 - 4) Urine Microscopic WBC 4 /HPF (0-5) Urine Squamous Epithelial Cells None seen /hpf (<5) Urine Bacteria None seen /hpf (None Seen) Urine Glucose Normal mg/dL (Normal) Labs and/or images reviewed: Labs reviewed by me Assessment/Plan Assessment/Plan Dizziness Elevated troponin Non ST-elevation GA Continuing current management. Continuing statin. Continuing with aspirin. Waiting for cardiac catheterization. Discharge planning. This medical document was created using an electronic medical record system with [employer]rik computerized dictation system. Although this document has been carefully reviewed, there may still be some phonetic and typographical errors. These areas are purely typographical due to imperfections of the software programs, and do not reflect any compromise in the patient's medical care. Plan discussed with: Patient Date of Service: Dec 23, 2024 Billing Provider: JEFF SINGH MD Common Visit Codes: [id number] INP/OBS CARE(HIGH) JEFF SINGH MD Dec 23, 2024 12:18
[2024-12-23 12:32] LABS: Amphetamine Screen, Urine Neg (NEGATIVE); Barbiturate Scree,Urine Neg (NEGATIVE); Benzodiazephine Screen, Urine Neg (NEGATIVE); Cannabinoid Screen, Urine Neg (NEGATIVE); Cocaine Screen, Urine Neg (NEGATIVE); Opiate Scree,Urine Neg (NEGATIVE); Phencyclidine Screen, Urine Neg (NEGATIVE)
[2024-12-23] MEDS: IODIXANOL 320MG/ML 100ML BTL IV ONE (13:03)
[2024-12-23] MEDS: ANGIOMAX 250 MG VIAL IV ONE (13:20)
[2024-12-23] MEDS: HEPARIN SODIUM (PORCINE) 5000 UNITS/ML 1ML VIAL ONE (13:20)
[2024-12-23] MEDS: fentaNYL CITRATE 100 MCG/2 ML VL ONE (13:20)
[2024-12-23] MEDS: VERAPAMIL 2.5MG/ML INJ 2ML VIAL IV ONE (13:20)
[2024-12-23] MEDS: LIDOCAINE 2%HCL (LOCAL ANESTH.) INJ 20ML MDV ONE (13:21)
[2024-12-23] MEDS: MIDAZOLAM HCL 2MG/2ML 2ml VIAL (1mg/ml) ONE (13:21)
[2024-12-23] MEDS: SODIUM CHL 0.9% 0 ML ONE (13:21)
--- NOTE | 2024-12-23 13:51 | DVHPN2 ---
Progress Note Date Seen: Dec 23, 2024 Medical Necessity Reason Pt with a Central, PICC or Fol: No Subjective Patient reports: Feels better Objective vital signs Vital Sign Date Time Temp Pulse Resp B/P (MAP) Pulse Ox O2 Delivery O2 Flow Rate FiO2 12/23/24 13:00 98.6 70 20 129/59 (82) 100 98.6 12/23/24 08:00 Room Air* 0 21 Total Intake and Output 12/22/24 12/22/24 12/23/24 15:00 23:00 07:00 Intake Total 100 ml Balance 100 ml medications Current Medications Medications Dose Ordered Sig/Sweta Route Start Time Stop Time Status Last Admin Dose Admin Docusate Sodium 100 mg BIDPRN PRN PO 12/22/24 22:45 Acetaminophen 650 mg Q6HP PRN PO 12/22/24 22:45 Acetaminophen/ Hydrocodone Bitart 1 tab Q4HP PRN PO 12/22/24 22:45 Ondansetron HCl 4 mg Q4HP PRN IV 12/22/24 22:45 Morphine Sulfate 2 mg Q4HPRN PRN IV 12/22/24 22:45 Enoxaparin Sodium 40 mg DAILY SC 12/23/24 10:00 Nitroglycerin 0.4 mg Q5MINP PRN SL 12/22/24 22:45 Morphine Sulfate 2 mg Q30M PRN IV 12/22/24 22:45 Aspirin 81 mg DAILY PO 12/23/24 10:00 Levothyroxine Sodium 75 mcg DAILY PO 12/23/24 10:00 12/23/24 10:04 75 MCG Meclizine HCl 25 mg Q8HPRN PRN PO 12/22/24 22:45 Atorvastatin Calcium 20 mg HS PO 12/23/24 22:00 Examination: GENERAL:Abnormal, HEENT:Abnormal, LUNGS:Abnormal, CVS:Abnormal, ABDOMEN:Abnormal laboratory and microbiology Laboratory Tests 12/23/24 04:14 Test 12/23/24 04:14 Range/Units Serum Glucose 79 74-106 mg/dL Problem List/Assessment/Plan Problem List/Assessment/Plan nstemi cad htn dizziness HL non critical cad asa, statin cont tele echo pending Plan discussed with: Patient Date of Service: Dec 23, 2024 Billing Provider: ANN-MARIE FAIRCHILD MD Common Visit Codes: NOT BILLABLE ANN-MARIE FAIRCHILD MD Dec 23, 2024 13:51
--- NOTE | 2024-12-23 13:53 | DVHOP2 ---
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 PREOPERATIVE DIAGNOSES: NSTEMI POSTOP DIAGNOSIS: NSTEMI, non critical cad DESCRIPTION OF PROCEDURE: The patient or appropriate family signed informed consent understanding the risks, benefits and alternatives of the procedure, they wished to proceed. The patient was [place] [facility] [place] The patient was prepped in a sterile fashion. Sedation was used per cardiac cath protocol. I administered 2 mL of 2% lidocaine to the right wrist. With an antegrade front wall puncture. I cannulated the right radial artery and placed a 6-[place] slender. Next, an intra-arterial spasmolytic was administered. Next, a - 5[place] cathete and were used for coronary angiogram and LVEDP measurement and pressure pullback. At the completion of procedure, all guides and wires were removed, and there were no immediate complications. 3000 U of IV heparin given FINDINGS: RCA: Moderate vessel off the right sinus of Valsalva, there is no severe flow limiting stenosis. 30% prox stenosis. 50% distal RCA bifurcation to rPDA stenosis LEFT MAIN: Moderate size left main, it bifurcates into LAD and circumflex. pat ent CIRCUMFLEX: Moderate caliber vessel coming off the left main with no flow limiting stenosis. patent LAD: LAD is a moderate caliber vessel coming of the left main. prox LAD 50% tubular stenosis. D1 ostial and prox stenosis of 50% mid LAD has a long tubular 40% stenois LVEDP of 8 mmhg CONCLUSIONS: 1. moderate non critical CAD PLAN: Aggressive risk factor modification and medical management for the patient. ANN-MARIE FAIRCHILD MD Dec 23, 2024 13:53
[2024-12-23] MEDS: ATORVASTATIN 20 MG TAB PO SCH (21:41)
[2024-12-24 01:00] VITALS: BP 104/54; PULSE 53; RESP 17; TEMP 97.6; O2SAT 96
[2024-12-24 05:00] VITALS: BP 101/66; PULSE 53; RESP 16; TEMP 97.5; O2SAT 98
[2024-12-24 07:35] LABS: Hematocrit 40.2 % (36.0-46.0); Hemoglobin 14.2 g/dL (12.2-16.2); Mean Corpuscular Hemoglobin 31.6 pg (28.0-32.0); Mean Corpuscular Volume 89.3 fL (80.0-100.0); Nucleated Red Blood Cells % 0.2 %
[2024-12-24 07:41] LABS: Anion Gap 10 (5-15); Carbon Dioxide 26 mmol/L (20-31); Chloride 107 mmol/L (98-107); Potassium 4.0 mmol/L (3.5-5.1); Sodium 143 mmol/L (136-145)
[2024-12-24 07:43] LABS: Calcium 8.6 mg/dL (8.7-10.4)
[2024-12-24 07:47] LABS: BUN/Creatinine Ratio 19.3 (10.0-20.0); Blood Urea Nitrogen 11 mg/dL (9-23); Glucose 86 mg/dL (74-106)
[2024-12-24 08:00] VITALS: PULSE 67; PULSE 71; RESP 18; O2SAT 98
[2024-12-24 08:15] VITALS: BP 126/61; PULSE 60; RESP 17; TEMP 98.3; O2SAT 98
[2024-12-24 12:05] VITALS: BP 133/77; PULSE 61; RESP 18; TEMP 98.8; O2SAT 98
[2024-12-24] MEDS ORDERED: ATOR20TA50 PO (14:23)
[2024-12-24] MEDS ORDERED: ASPI1TAB20 PO (14:25)
--- NOTE | 2024-12-24 14:26 | DVHDS2 ---
Discharge Summary Date of Admission Dec 22, 2024 at 22:40 Date of Discharge: Dec 24, 2024 Admitting Diagnosis Dizziness Elevated troponin Hypothyroidism SLE Labs/Diagnostic Data: Laboratory Results Test 12/24/24 06:10 12/23/24 10:40 12/23/24 04:14 12/22/24 15:45 White Blood Count 5.7 10^3/uL (4.4-10.8) Red Blood Count 4.50 10^6/uL (4.0-5.20) Hemoglobin 14.2 g/dL (12.2-16.2) Hematocrit 40.2 % (36.0-46.0) Mean Corpuscular Volume 89.3 fL (80.0-100.0) Mean Corpuscular Hemoglobin 31.6 pg (28.0-32.0) Mean Corpuscular Hemoglobin Concent 35.4 g/dL (32.0-36.0) Red Cell Distribution Width 12.9 % (11.8-14.3) Platelet Count 203 10^3/uL (140-450) Mean Platelet Volume 7.9 fL (6.9-10.8) Neutrophils (%) (Auto) 54.4 % (37.0-80.0) Lymphocytes (%) (Auto) 33.6 % (10.0-50.0) Monocytes (%) (Auto) 8.2 % (0.0-12.0) Eosinophils (%) (Auto) 2.9 % (0.0-7.0) Basophils (%) (Auto) 0.9 % (0.0-2.0) Neutrophils # (Auto) 3.1 10 ^3/uL (1.6-8.6) Lymphocytes # (Auto) 1.9 10 ^3/uL (0.4-5.4) Monocytes # (Auto) 0.5 10 ^3/uL (0-1.3) Eosinophils # (Auto) 0.2 10 ^3/uL (0-0.8) Basophils # (Auto) 0.1 10 ^3/uL (0-0.2) Nucleated Red Blood Cells 0.2 % Sodium Level 143 mmol/L (136-145) Potassium Level 4.0 mmol/L (3.5-5.1) Chloride Level 107 mmol/L (98-107) Carbon Dioxide Level 26 mmol/L (20-31) Anion Gap 10 (5-15) Blood Urea Nitrogen 11 mg/dL (9-23) Creatinine 0.57 mg/dL (0.550-1.02) Glomerular Filtration Rate Calc 101 mL/min (>90) BUN/Creatinine Ratio 19.3 (10.0-20.0) Serum Glucose 86 mg/dL (74-106) Calcium Level 8.6 mg/dL (8.7-10.4) Urine Opiates Screen Neg (NEGATIVE) Urine Fentanyl Screen Neg (NEGATIVE) Urine Barbiturates Screen Neg (NEGATIVE) Urine Phencyclidine Screen Neg (NEGATIVE) Urine Amphetamines Screen Neg (NEGATIVE) Urine Benzodiazepines Screen Neg (NEGATIVE) Urine Cocaine Screen Neg (NEGATIVE) Urine Cannabinoids Screen Neg (NEGATIVE) Hemoglobin A1c 4.6 % A1C (<5.7) Magnesium Level 2.4 mg/dL (1.6-2.6) Troponin I High Sensitivity 245 ng/L (</=34) Triglycerides Level 131 mg/dL (< 150) Cholesterol Level 179 mg/dL (< 200) LDL Cholesterol 103 mg/dL (< 100) HDL Cholesterol 61 mg/dL (40-59) Thyroid Stimulating Hormone (TSH) 0.71 uIU/mL (0.55-4.78) Urine Color Light-yellow (Yellow) Urine Clarity Clear (Clear) Urine pH 5.5 (5.0-9.0) Urine Specific [place] 1.010 (1.001-1.035) Urine Protein Negative (Negative) Urine Ketones Negative (Negative) Urine Blood 1+ /uL (Negative) Urine Nitrite Negative (Negative) Urine Bilirubin Negative (Negative) Urine Urobilinogen Normal mg/dL (Negative) Urine Leukocyte Esterase Trace /uL (Negative) Urine RBC 3 /hpf (0 - 4) Urine Microscopic WBC 4 /HPF (0-5) Urine Squamous Epithelial Cells None seen /hpf (<5) Urine Bacteria None seen /hpf (None Seen) Urine Glucose Normal mg/dL (Normal) Test 12/22/24 15:00 B-Type Natriuretic Peptide 39.25 pg/mL (0-100) Other Laboratory Tests 12/24/24 06:10 Brief Hx & Hospital Course: This is a 64 years old female with past medical history hypothyroidism, SLE come to emergency department because of dizziness. The patient said she had this dizziness for one week. She went to urgent care and was instructed to come to emergency department because of the abnormal EKG. EKG completed at urgent Care showed abnormal T-waves compared to previous EKG. The patient troponin level is elevated. The patient was admitted. The patient had the echo done showed lvef 65%,normal rv function,normal atria ,no severe valve abnormalities noted. The patient subsequently had cardiac catheterization done. It showed RCA: Moderate vessel off the right sinus of Valsalva, there is no severe flow limiting stenosis. 30% prox stenosis. 50% distal RCA bifurcation to rPDA stenosis LEFT MAIN: Moderate size left main, it bifurcates into LAD and circumflex. patent CIRCUMFLEX: Moderate caliber vessel coming off the left main with no flow limiting stenosis. patent LAD: LAD is a moderate caliber vessel coming of the left main. prox LAD 50% tubular stenosis. D1 ostial and prox stenosis of 50%,mid LAD has a long tubular 40% stenosis. LVEDP of 8 mmhg reed dipper's conclusion is noncritical moderate coronary artery disease. Patient dizziness is improved today. Patient can Continuing meclizine as home. I am going to discharge the patient home today. Advised the patient to follow up with primary care physician 1-2 weeks. Follow up with reed dipper per schedule. Activity as tolerated. Diet low-salt low-cholesterol diet. Physical exam: HEENT: Normocephalic atraumatic pupils equal react to light and accommodation. Extraocular muscles intact, conjunctiva pink, oropharynx moist, no thrush, no exudate. Lymphatic: No lymphadenopathy Cardiovascular exam: S1, S2 was heard. No murmurs, rubs, gallops Lung: Clear on auscultation bilaterally, no wheeze, rale, rhonchi. GI: Abdominal soft, nondistended, nontenderness, positive bowel sounds. Extremity: No crepitus, cyanosis, edema. Pedal pulses present bilateral. Full range of motion. Skin: Normal turgor, no rash. Psych: Alert, oriented x3. Neurology: No focal deficits, cranial nerve II to XII grossly intact. This medical document was created using an electronic medical record system with [employer] direct computerized dictation system. Although this document has been carefully reviewed, there may still be some phonetic and typographical errors. These areas are purely typographical due to imperfections of the software programs, and do not reflect any compromise in the patient's medical care. Condition at Discharge: Stable Final Diagnosis/Problems List NSTEMI Dizziness Elevation of troponin level Moderate coronary artery disease Hypothyroidism SLE Discharge Disposition: Home Discharge Instruct/Medications Diet: Cardiac 2g Na,low cholest Activity: No Restrictions, As Tolerated Follow Up/Referral: pcp 1-2 weeks Medications: see med list Scheduled Alendronate Sodium (Alendronate Sodium), 1 TAB PO QWEEKLY, (Reported) Aspirin (Aspir-81), 1 TAB PO DAILY Atorvastatin Calcium (Atorvastatin Calcium), 20 MG PO HS Hydroxychloroquine Sulfate (Hydroxychloroquine Sulfat), 1 TAB PO DAILY, (Reported) Indomethacin (Indomethacin), 1 CAP PO TID, (Reported) Levothyroxine Sodium (Levothyroxine Sodium), 1 TAB PO DAILY, (Reported) Discharge Statement: "Patient was advised to return to the ER or call 911 if any headaches, dizziness, shortness of breath, chest pain, abdominal pain, bleeding, fevers, or worsening of medical condition. Patient was counseled about treatment plan, medications, possible side effects, patientverbalized understanding. All questions were answered to the best of my ability. This discharge took greater then 30 minutes in planning, reviewing documentation, counseling the patient, and discussing with other team members." ASSESSMENT ASSESSMENT Assessment NSTEMI Date of Service: Dec 24, 2024 Billing Provider: JEFF SINGH MD Common Visit Codes: 82746-TAH/OBS DISCH DAY >30min JEFF SINGH MD Dec 24, 2024 14:26
[2024-12-24 14:53] VITALS: TEMP 37.1
--- NOTE | 2024-12-24 16:54 | DVHSR ---
APPROVED REPORT EXAM: Two-dimensional and M-mode echocardiogram with Doppler and color Doppler. Blood Pressure: 125/54 mmHg INDICATION Elevated Trop RISK FACTORS Height: 5'1", Weight: 102 DIMENSIONS LVDd3.8 (3.8-5.7cm)LA (2D)2.7 (1.9-4.0cm)Aortic Root (2.0-3.7cm) LVDs2.2 (2.5-4.0cm)LA (MM) (1.9-4.0cm)Aortic Cusp Exc (1.5-2.0cm) EF (%) 70.0 (55-70%)Rt. Atrium (1.9-4.0cm)Asc. Aorta cm IVSd0.8 (0.7-1.1cm)RV (D) (1.8-2.4cm) PWd0.9 (0.7-1.1cm) Mitral Valve MitralMitral Stenosis E/A ratio0.02D MVAcm2 Aortic Valve Aortic ValveAortic Stenosis LVOT Diameter1.9 (1.8-2.4cm)Doppler AVAcm2 Other Information Quality : Technically LimitedRhythm : Technically limited study due to body habitus. Pt lying supine s/p C. Conclusion lvef 65% normal rv function normal atria no severe valve abnormalities noted
== END 2024-12-24 15:30 | disposition home or self-care (01) | DRG 282 ==
LOC: ER 14:42 → OVERFLOW 22:40 → TELE-CENTR 12-23 17:41
PROVIDERS: ADMIT Internal Medicine; ATTEND Internal Medicine
PROC: 4A023N7 Measurement of Cardiac Sampling and Pressure, Left Heart, Percutaneous Approach (ICD-10-PCS; principal; 2024-12-23)
PROC: B211YZZ Fluoroscopy of Multiple Coronary Arteries using Other Contrast (ICD-10-PCS; 2024-12-23)
DX: I21.4 Non-ST elevation (NSTEMI) myocardial infarction (principal); E78.5 Hyperlipidemia, unspecified; E03.9 Hypothyroidism, unspecified; M32.9 Systemic lupus erythematosus, unspecified; M41.80 Other forms of scoliosis, site unspecified; M81.0 Age-related osteoporosis without current pathological fracture; I25.10 Atherosclerotic heart disease of native coronary artery without angina pectoris; Z87.891 Personal history of nicotine dependence; Z79.899 Other long term (current) drug therapy
CPT/HCPCS: 36415; 70450; 70551; 71045; 80048; 80061; 80307; 81001; 83036; 83735; 83880; 84443; 84484; 85025; 93005; 93306; 93458; 96360; 97163; 99152; G0378; J2250; Q9967